=== PATIENT | female | born 1970 | race Caucasian/White ===

== ENCOUNTER 2017-01-20 19:10 | Observation (INO) ==
[2017-01-20 19:54] LABS: MANUAL DIFF NEEDED? NO
[2017-01-20 20:00] LABS: BASO% 0.2 % (0.0-0.8); EOS# 0.27 X1000 (0.0-0.7); EOS% 1.4 % (0.0-10.0); HEMATOCRIT 47.1 % (37.0-47.0); IMM GRAN# 0.06 X1000 (0.0-0.04); IMM GRAN% 0.3 % (0.0-0.5); LYMPH# 5.97 X1000 (1.2-3.4); LYMPH% 30.9 % (20.5-51.1); MCH 30.4 PG (27-31); MCV 89.5 FL (81-99); MONO# 1.48 X1000 (0.11-0.59); MONO% 7.6 % (1.7-9.3); MPV 9.6 FL (7.4-10.4); NEUT% 59.6 % (42.2-75.2); PLT 456 X1000 (130-400); RBC 5.26 XMIL (4.2-5.4)
[2017-01-20 20:04] LABS: BILIRUBIN URINE NEGATIVE (NEGATIVE); BLOOD URINE NEGATIVE (NEGATIVE); CLARITY CLEAR (CLEAR); COLOR YELLOW; LEUKOCYTES URINE 1+ (NEGATIVE); NITRITE URINE NEGATIVE (NEGATIVE); PH URINE 6.5; PROTEIN URINE NEGATIVE (NEGATIVE); UROBILINOGEN URINE NORMAL
[2017-01-20 20:16] LABS: INR 0.95 (0.86-1.15)
[2017-01-20 20:17] LABS: PTT PL 23.2 Seconds (22.6-43.9)
[2017-01-20 20:18] LABS: UR AMPHETAMINES QUAL NONE DETECTED (NONE DETECT); UR BARBITUATES QUAL NONE DETECTED (NONE DETECT); UR BENZODIAZEPIN QUAL PRESUMPTIVE POSITIVE (NONE DETECT); UR COCAINE QUAL NONE DETECTED (NONE DETECT); UR MDMA QUAL NONE DETECTED (NONE DETECT); UR METHADONE QUAL NONE DETECTED (NONE DETECT); UR METHAMPHETAMINE QUAL NONE DETECTED (NONE DETECT); UR OPIATES QUAL NONE DETECTED (NONE DETECT); UR OXYCODONE QUAL NONE DETECTED (NONE DETECT); UR PCP QUAL NONE DETECTED (NONE DETECT)
[2017-01-20 20:19] LABS: UR CANNABINOIDS QUAL NONE DETECTED (NONE DETECT); UR TCA QUAL PRESUMPTIVE POSITIVE (NONE DETECT)
[2017-01-20 20:26] LABS: URINE CAST NONE SEEN /LPF; URINE CRYSTAL NONE SEEN /HPF; URINE CULTURE PL NEEDED? YES; URINE EPITHELIAL CELLS >10 /HPF (<10); URINE SOURCE CATH; URINE WBC <10 /HPF (<10)
[2017-01-20 20:29] LABS: AGAP 27; ALBUMIN 4.3 g/dL (3.5-5.0); ALKALINE PHOSPHATASE 218 U/L (32-104); BUN 12 mg/dL (8-22); CALCIUM 9.9 mg/dL (8.8-10.2); CHLORIDE 94 mmol/L (98-107); CK PROFILE 37 U/L (24-173); COSMO 280; GOT 19 U/L (10-30); GPT 18 U/L (10-36); POTASSIUM 3.2 mmol/L (3.5-5.1); SODIUM 134 mmol/L (136-145); TCO2 13 mmol/L (25-35); TOTAL PROTEIN 7.9 g/dL (6.3-8.3)
[2017-01-20 20:35] LABS: BE -12.5 mmoll (-3.0-3.0); BLOOD TYPE ARTERIAL; DRAW SITE R RADIAL; METHB 0.9 % (0.0-1.5); O2(CT) 20.9 mL/dL (15.0-23.0); PO2(98.6) 157 mmHg (60-100); SAMPLE BLOOD; SAO2 97.8 % (95.0-100.0); THB 15.3 g/dL (11.5-17.4); pH(98.6) 7.37 (7.35-7.45)
[2017-01-20 20:37] LABS: FREE T4 1.86 ng/dL (0.93-1.70)
--- NOTE | 2017-01-20 20:37 | EKG Report ---
Test Performed on : 01/20/2017 8:11:30 PM Test Reason : AMS Blood Pressure : / mmHG Vent. Rate : 144 BPM Atrial Rate : 144 BPM P-R Int : 150 ms QRS Dur : 080 ms QT Int : 260 ms P-R-T Axes : 037 045 208 degrees QTc Int : 402 ms Sinus tachycardia. Possible Left atrial enlargement ST \T\ T wave abnormality, consider inferolateral ischemia Abnormal ECG When compared with ECG of 05-JUL-2016 18:06, Vent. rate has increased BY 63 BPM T wave inversion now evident in Inferior leads T wave inversion now evident in Lateral leads Unconfirmed Result
[2017-01-20 20:38] LABS: ALLEN TEST YES; MODALITY ROOM AIR; PCO2(98.6) 17 mmHg (35-45)
[2017-01-20] MEDS ORDERED: NS 1,000 ML IV ONE (20:47)
[2017-01-20] MEDS ORDERED: HUMULIN R IV ONE (20:48)
[2017-01-20] MEDS ORDERED: ZOFRAN IV ONE (20:59)
[2017-01-20] MEDS ORDERED: HUMULIN R (PARKWAY) 100 UNITS in NS 100 ML IV SCH (21:00)
[2017-01-20] MEDS ORDERED: HUMULIN R (PARKWAY) ONE (21:07)
[2017-01-20] MEDS ORDERED: D50W SYRINGE IV PRN (23:36)
[2017-01-20] MEDS ORDERED: HUMULIN R 100 UNIT in NS 100 ML IV SCH (23:36)
[2017-01-20] MEDS ORDERED: D5 1/2 NS 1,000 ML IV PRN (23:39)
[2017-01-21] MEDS: NS 1,000 ML IV SCH ×4 (00:03→19:53)
[2017-01-21] MEDS: LOPRESSOR PO SCH ×4 (00:03→08:54)
[2017-01-21] MEDS: LUNESTA PO SCH ×2 (00:04→21:08)
[2017-01-21 01:52] LABS: AGAP 20; BUN 10 mg/dL (8-22); CALCIUM 8.5 mg/dL (8.8-10.2); CHLORIDE 98 mmol/L (98-107); COSMO 275; MAGNESIUM 1.2 mg/dL (1.5-2.7); SODIUM 132 mmol/L (136-145); TCO2 14 mmol/L (25-35)
--- NOTE | 2017-01-21 05:39 | PROVIDER DOCUMENTATION ---
This chart was entered by Beth Osorio Scribe, acting as scribe for Mau Belcher MD. HPI-General Adult - General Chief Complaint: General Adult Stated Complaint: DISORIENTED,DIZZINESS Time Seen by Provider: 01/20/17 19:31 Source: patient, family Allergies/Adverse Reactions: Patient Allergies Allergy/AdvReac Type Severity Reaction Status Date / Time Penicillins Allergy Intermediate NAUSEA Verified 06/30/14 09:46 Home Medications: Home Medication List Medication Instructions Recorded Confirmed Last Taken Type Alprazolam [Xanax] 1 mg PO BID PRN PRN 12/01/13 01/21/17 12/01/13 13:00 History Cyanocobalamin 1,000 microgm IM DIRECTED 12/01/13 06/30/14 11/29/13 History Eszopiclone [Lunesta] 3 mg PO HS 12/01/13 01/21/17 10/30/13 History Insulin Aspart [Novolog Flexpen] 20 - 22 unit SQ TID 12/01/13 06/30/14 12/01/13 12:00 History Insulin Detemir [Levemir Flexpen] 44 unit SQ QAM 12/01/13 06/30/14 12/01/13 08: 00 History Metformin [Glucophage] 1,000 mg PO BID CC 12/01/13 01/21/17 12/01/13 08:00 History Promethazine [Phenergan] 25 mg OK Q6H PRN PRN 12/01/13 01/21/17 11/29/13 History Doxepin HCl 300 mg PO HS 01/20/17 01/21/17 Unknown History Eszopiclone [Lunesta] 3 mg PO HS 01/20/17 01/20/17 Unknown History Metoprolol [Lopressor] 1 tab PO DAILY 01/20/17 01/20/17 Unknown History Chlorpromazine [Thorazine] 25 mg PO HS PRN PRN 01/21/17 01/21/17 Unknown History Escitalopram [Lexapro] 40 mg PO DAILY 01/21/17 01/21/17 Unknown History Omeprazole [Prilosec] 20 mg PO DAILY 01/21/17 01/21/17 Unknown History Oxycodone HCl/Acetaminophen 1 mg PO BID PRN PRN 01/21/17 01/21/17 Unknown History [Percocet 5-325 mg Tablet] Tizanidine [Zanaflex] 4 mg PO TID PRN PRN 01/21/17 01/21/17 Unknown History - History of Present Illness -Gen Adult Nature of Presenting Problems: 46 Y/O F presents to ED. Pt states that she has pronounced disorientation, falling down, confusion, confused conversation and explanation. Pt and pt states unable to remember events. Pt has had these symptoms for 6 months with increased symptoms within 48 hours. Pt has noted bruises on body and Pt saw in [place] and stated he told her to come off her meds to see if it would fix symptoms. Pt stated that it did not help. Pt recently returned from [place] on December 15. Pt states recently got restarted on Lunesta , and Xanax, Thorazine. Pt continued on Doxepin, and lexapro while out the country. Location of Pain/Injury: reports: generalized Pain Radiation: reports: no radiation Severity: reports: moderate, severe Onset/Duration: reports: 2 days ago (increased within 48 hours), other (6 months onset) Associated Symptoms: reports: nausea, vomiting, trouble walking, other (AMS). denies: back/neck pain, fever/chills, muscle aches, sinus congestion/drainage Similar Symptoms Previously?: Yes Recently seen or treated by another doctor?: Yes Review of Systems - Adult - REVIEW OF SYSTEMS - ADULT Constitutional: denies: chills, fever Cardiovascular: reports: irregular heart rate. denies: chest pain Respiratory: denies: cough, shortness of breath Gastrointestinal: reports: nausea, vomiting Genitourinary: reports: flank pain Neurological: reports: loss of balance, slurred speech. denies: dizziness/ vertigo, headache/migraines, numbness Psychiatric: reports: insomnia. denies: depression Past History - Adult - PAST MEDICAL HISTORY-ADULT Review of Records: reports: Old Records Reviewed, Nursing Assessment Review, Medications Reviewed, Social history reviewed & non-contributory. Major Childhood Illnesses: reports: denies history Cardiovascular: reports: denies history Respiratory: reports: sleep apnea Gastrointestinal: reports: denies history Obstetrical/Gynecological: reports: denies history Genitourinary: reports: kidney stones Musculoskeletal: reports: fibromyalgia Neurological: reports: denies history Psychiatric: reports: other (seasonal affective disorder) Endocrine/Immune: reports: Diabetes, thyroid disorder Other Conditions: reports: denies history - PRIOR SURGERIES/PROCEDURES Surgical/Procedure History: reports: appendectomy, cholecystectomy, hernia repair - IMMUNIZATION STATUS Childhood Immunizations: See Nurse Assessment Flu Vaccine: See Nurse Assessment - FAMILY HISTORY Family History: reviewed, not pertinent Physical Exam-General - PHYSICAL EXAM-ADULT Initial Vital Signs Reviewed: Yes - CONSTITUTIONAL General Appearance: no apparent distress - EYES Eyes: PERRL/EOMI, pink conjunctivae - HEAD, EARS, NOSE, MOUTH & THROAT HENMT: TMs normal, pharynx normal. negative: moist mucous membranes - NECK Neck: non-tender, full range of motion, supple - RESPIRATORY Respiratory: lungs clear, normal breath sounds - CARDIOVASCULAR Cardiovascular: tachycardia - GASTROINTESTINAL (ABDOMEN) Abdominal Exam: non tender, soft - MUSCULOSKELETAL Back Exam: CVA tenderness Extremity: negative: normal gait, swelling, tenderness - SKIN Integumentary: normal color, normal turgor - PSYCHIATRIC Psych/Mental Status: oriented x 3 Progress - PLAN OF CARE/RESULTS Progress/Plan/Lab Results: Vital Signs - 8 hr 01/20/17 19:22 Temperature 97.7 F Pulse Rate 161 H Respiratory Rate 20 Blood Pressure 135/71 O2 Sat by Pulse Oximetry 99 Laboratory Results - last 24 hr 01/20/17 01/20/17 01/20/17 19:45 19:45 19:45 WBC RBC Hgb Hct MCV MCH MCHC RDW Std Deviation Plt Count MPV Immature Gran % (Auto) Neut % (Auto) Lymph % (Auto) Ponce % (Auto) Eos % (Auto) Baso % (Auto) Immature Gran # (Auto) Neut # (Auto) Lymph # (Auto) Ponce # (Auto) Eos # (Auto) Baso # (Auto) PT INR APTT (Factor Assay) D-Dimer Sodium 134 L Potassium 3.2 L Chloride 94 L Carbon Dioxide 13 L Anion Gap 27 BUN 12 Creatinine 0.8 Estimated GFR/1.73 m2 > 60 BUN/Creatinine Ratio 15 Glucose 307 H POC Glucose Calculated Osmolality 280 Calcium 9.9 Total Bilirubin 0.50 AST 19 ALT 18 Alkaline Phosphatase 218 H Creatine Kinase 37 Troponin T < 0.010 Total Protein 7.9 Albumin 4.3 Globulin 4.0 Albumin/Globulin Ratio 1.0 Plasma Lactate 1.3 Urine Source Urine Color Urine Clarity Urine pH Ur Specific [place] Urine Protein Urine Ketones Urine Blood Urine Nitrite Urine Bilirubin Urine Urobilinogen Urine Microscopic RBC Urine WBC Urine Microscopic WBC Ur Epithelial Cells Urine Crystals Urine Bacteria Urine Casts Urine Yeast Urine Glucose Urine Opiates Screen Ur Oxycodone Screen Urine Methadone Screen Ur Barbituates Screen Ur Tricyclics Screen Ur Phencyclidine Scrn Ur Amphetamines Screen U Methamphetamines Scrn Urine MDMA Screen U Benzodiazepines Scrn Urine Cocaine Screen U Cannabinoids Screen 01/20/17 01/20/17 01/20/17 19:45 19:45 19:45 WBC 19.35 H RBC 5.26 Hgb 16.0 Hct 47.1 H MCV 89.5 MCH 30.4 MCHC 34.0 RDW Std Deviation 13.2 Plt Count 456 H MPV 9.6 Immature Gran % (Auto) 0.3 Neut % (Auto) 59.6 Lymph % (Auto) 30.9 Ponce % (Auto) 7.6 Eos % (Auto) 1.4 Baso % (Auto) 0.2 Immature Gran # (Auto) 0.06 H Neut # (Auto) 11.53 H Lymph # (Auto) 5.97 H Ponce # (Auto) 1.48 H Eos # (Auto) 0.27 Baso # (Auto) 0.04 PT 13.0 INR 0.95 APTT (Factor Assay) 23.2 D-Dimer 1.11 H Sodium Potassium Chloride Carbon Dioxide Anion Gap BUN Creatinine Estimated GFR/1.73 m2 BUN/Creatinine Ratio Glucose POC Glucose Calculated Osmolality Calcium Total Bilirubin AST ALT Alkaline Phosphatase Creatine Kinase Troponin T Total Protein Albumin Globulin Albumin/Globulin Ratio Plasma Lactate Urine Source Urine Color Urine Clarity Urine pH Ur Specific [place] Urine Protein Urine Ketones Urine Blood Urine Nitrite Urine Bilirubin Urine Urobilinogen Urine Microscopic RBC Urine WBC Urine Microscopic WBC Ur Epithelial Cells Urine Crystals Urine Bacteria Urine Casts Urine Yeast Urine Glucose Urine Opiates Screen Ur Oxycodone Screen Urine Methadone Screen Ur Barbituates Screen Ur Tricyclics Screen Ur Phencyclidine Scrn Ur Amphetamines Screen U Methamphetamines Scrn Urine MDMA Screen U Benzodiazepines Scrn Urine Cocaine Screen U Cannabinoids Screen 01/20/17 01/20/17 01/20/17 19:55 19:55 20:02 WBC RBC Hgb Hct MCV MCH MCHC RDW Std Deviation Plt Count MPV Immature Gran % (Auto) Neut % (Auto) Lymph % (Auto) Ponce % (Auto) Eos % (Auto) Baso % (Auto) Immature Gran # (Auto) Neut # (Auto) Lymph # (Auto) Ponce # (Auto) Eos # (Auto) Baso # (Auto) PT INR APTT (Factor Assay) D-Dimer Sodium Potassium Chloride Carbon Dioxide Anion Gap BUN Creatinine Estimated GFR/1.73 m2 BUN/Creatinine Ratio Glucose POC Glucose 293 H Calculated Osmolality Calcium Total Bilirubin AST ALT Alkaline Phosphatase Creatine Kinase Troponin T Total Protein Albumin Globulin Albumin/Globulin Ratio Plasma Lactate Urine Source CATH Urine Color YELLOW Urine Clarity CLEAR Urine pH 6.5 Ur Specific [place] 1.010 Urine Protein NEGATIVE Urine Ketones 3+(Large) A Urine Blood NEGATIVE Urine Nitrite NEGATIVE Urine Bilirubin NEGATIVE Urine Urobilinogen NORMAL Urine Microscopic RBC Not Reportable Urine WBC 1+ A Urine Microscopic WBC <10 Ur Epithelial Cells >10 A Urine Crystals NONE SEEN Urine Bacteria 1+ Urine Casts NONE SEEN Urine Yeast PRESENT Urine Glucose 3+(500 mg/dL) A Urine Opiates Screen NONE DETECTED Ur Oxycodone Screen NONE DETECTED Urine Methadone Screen NONE DETECTED Ur Barbituates Screen NONE DETECTED Ur Tricyclics Screen PRESUMPTIVE POSITIVE A Ur Phencyclidine Scrn NONE DETECTED Ur Amphetamines Screen NONE DETECTED U Methamphetamines Scrn NONE DETECTED Urine MDMA Screen NONE DETECTED U Benzodiazepines Scrn PRESUMPTIVE POSITIVE A Urine Cocaine Screen NONE DETECTED U Cannabinoids Screen NONE DETECTED Orders Category Date Time Status Cardiac Monitoring DIRECTED Care 01/20/17 19:32 Active Finger Stick Blood Sugar (ED) DIRECTED Care 01/20/17 19:32 Active Saline Loc NOW Care 01/20/17 19:32 Active CHEST-2 VIEWS [RAD] Stat Exams 01/20/17 19:35 Taken ABG [RESP] Routine Lab 01/20/17 19:32 Ordered ALCOHOL BLOOD Stat Lab 01/20/17 19:45 Received CBC WITH ELECTRONIC DIFF [HEME] Stat Lab 01/20/17 19:45 Completed CK PROFILE [SP CHEM] Stat Lab 01/20/17 19:45 Completed COMPREHENSIVE METABOLIC PANEL [CHEM] Stat Lab 01/20/17 19:45 Completed Ddimer [D-DIMER PL] [COAG] Stat Lab 01/20/17 19:45 Completed FREE T4 Stat Lab 01/20/17 19:45 Received LACTATE, PLASMA [CHEM] Stat Lab 01/20/17 19:45 Completed MAGNESIUM [CHEM] Stat Lab 01/20/17 19:45 Received [address]IME WITH INR PL [COAG] Stat Lab 01/20/17 19:[address] [COAG] Stat Lab 01/20/17 19:45 Completed TROPONIN T Stat Lab 01/20/17 19:45 Completed TSH Stat Lab 01/20/17 19:[address] W/POSS RFLX CULT [URINALYSIS] Stat Lab 01/20/17 19:55 Completed URINE CULTURE [RM] Routine Lab 01/20/17 20:26 Ordered [address]INE DRUG SCREEN [address] Stat Lab 01/20/17 19:55 Completed Pulse Oximetry Stat Oth 01/20/17 19:32 Active EKG [EKG] Stat Ther 01/20/17 19:32 Ordered Result Diagrams: 01/20/17 19:45 01/21/17 00:55 - EKG 1 Time of EKG reading by physician:: 20:11 EKG Read and Signed by:: Mau Belcher EKG Interpretation (*Must complete 3 of following elements*): Normal Rate: 144 Rhythm: Sinus Tachycardia Comments: Abnormal ECG, St&t Wave abnormality consider inferolateral ischemia - XRAY 1 XRAY Study: Chest Impression: Normal XRAY Interpretation: NAD - CONSULTS/PCP/HOSPITALIST Notification #1 *Consult/PCP/Hospitalist*: Time Discussed: 21:51 Reason/Comments: Admit Consult Disposition: Admit (Admit Accepted) Departure - Departure Time of Disposition Decision: 05:38 DIAGNOSIS: DKA (diabetic ketoacidoses) Qualifiers: Diabetes mellitus type: type 1 Diabetes mellitus complication detail: without coma Qualified Code(s): E10.10 - Type 1 diabetes mellitus with ketoacidosis without coma Disposition: ADMITTED INPATIENT 09 Certified Medical Emergency: Emergent Condition: Fair - Critical Care Note This patient required my direct & personal management of CC.: Yes This chart was documented by the indicated scribe, (Beth Osorio Scribe) and accurately reflects the services I performed and decisions made by me, Mau Belcher MD, as attested by the provider's signature.
--- NOTE | 2017-01-21 05:57 | Diag Imaging Result Doc PS360 ---
EXAM: CHEST-2 VIEWS HISTORY: ams TECHNIQUE: Two views COMPARISON: 07/05/2016 FINDINGS: The lungs are well expanded. The heart is not enlarged. The vessels are not distended. There are no infiltrates. No pleural effusions. IMPRESSION: No acute abnormality. Electronically signed by Jadiel Saha 01/21/2017 5:54 AM
[2017-01-21 07:18] LABS: AGAP 16; BUN 11 mg/dL (8-22); CALCIUM 8.6 mg/dL (8.8-10.2); CHLORIDE 105 mmol/L (98-107); COSMO 281; MAGNESIUM 1.3 mg/dL (1.5-2.7); POTASSIUM 3.1 mmol/L (3.5-5.1); SODIUM 137 mmol/L (136-145); TCO2 16 mmol/L (25-35)
[2017-01-21] MEDS ORDERED: MAGNESIUM SULFATE 2 GM/S.W.I. 2 GM/50 ML IVPB IV ONE (08:27)
[2017-01-21] MEDS ORDERED: THORAZINE PO PRN (08:30)
[2017-01-21] MEDS ORDERED: ZANAFLEX PO PRN (08:30)
[2017-01-21] MEDS: LEXAPRO PO SCH (08:52)
[2017-01-21 08:53] LABS: AGAP 14; BUN 9 mg/dL (8-22); CALCIUM 8.6 mg/dL (8.8-10.2); CHLORIDE 106 mmol/L (98-107); COSMO 277; MAGNESIUM 1.3 mg/dL (1.5-2.7); SODIUM 136 mmol/L (136-145); TCO2 17 mmol/L (25-35)
[2017-01-21] MEDS: PRILOSEC PO SCH (09:00)
--- NOTE | 2017-01-21 09:29 | HISTORY AND PHYSICAL ---
PRIMARY CARE PHYSICIAN: [facility]. CHIEF COMPLAINT: Disorientation, confusion, and falling down that has been present for 6 months but worse over the past 48 hours. HISTORY OF PRESENTING ILLNESS: This is a 46-year-old, female who presents to [facility] ER with her who stated that she has had increased disorientation, confusion, had some falling down episodes, unable to remember events, and that these symptoms have been present for 6 months but worse over the past 48 hours with increase in all of those symptoms. She has noted bruises on her body. States she recently returned from [place] where she was visiting family from September until November, and was off of some of her medications at that time but states that she has been taking her diabetes medications. Workup in the ER showed a white blood cell count of 19.35, a D-dimer of 1.11. Blood gases showed a pH of 7.37, a pCO2 of 17, a PO2 157, bicarb 15.1. Sodium was 134, with a potassium of 3.2, CO2 was 13, with an anion gap of 27, glucose was 307. Magnesium was 1.4. She was admitted to the intensive care unit for DKA and further evaluation and treatment. PAST MEDICAL HISTORY: Sleep apnea, fibromyalgia, diabetes type 2, hypothyroidism, neuropathy, PTSD, and kidney stones. PAST SURGICAL HISTORY: Appendectomy, cholecystectomy, and a hernia repair. FAMILY HISTORY: Diabetes type 2. SOCIAL HISTORY: She currently lives with family. Denies any tobacco, alcohol, or illicit drug use. ALLERGIES: Penicillin. HOME MEDICATIONS: She takes Xanax 1 mg p.o. b.i.d. p.r.n., Thorazine 25 mg p.o. at bedtime p.r.n., cyanocobalamin 1000 mcg IM as directed will be held, doxepin 300 mg p.o. at bedtime, Lexapro 40 mg p.o. daily, Lunesta 3 mg p.o. at bedtime, NovoLog FlexPen - dosage has not been verified on that so we will get verification of that and her Levemir, Glucophage 1000 mg p.o. b.i.d. will be held, Lopressor 50 mg p.o. daily, Prilosec 20 mg p.o. daily, Percocet 5 one p.o. b.i.d. p.r.n., Phenergan 25 mg per rectally q.6 hours p.r.n. will be held, and Zanaflex 4 mg p.o. t.i.d. p.r.n. LABORATORY DATA: Showed a white blood cell count of 19.35, a hemoglobin of 16, hematocrit 47.1, platelets 456,000. PT and INR of 13 and 0.95. A D-dimer of 1.11. A pH of 7.37 , pCO2 17, PO2 157, bicarb of 15.1, and this was on room air. Sodium of 134, potassium 3.2, chloride 94, CO2 13, BUN of 12, creatinine 0.8, anion gap of 27, glucose 307. Magnesium 1.4. TSH is 0.95 with a free T4 of 1.86. Urinalysis was negative except for 3+ ketones and 3+ glucose. Urine drug screen was presumptive positive for tricyclics and benzodiazepines. Serum alcohol level showed none detected. Urine culture is pending. Chest x-ray showed no acute abnormality. REVIEW OF SYSTEMS: She denied any fever, chills, blurred vision. She has had some dizziness, increased confusion. Denied any chest pain, coughing, shortness of breath. She was positive for some nausea and vomiting, increased confusion, falls. Denied any burning or hurting with urination. PHYSICAL EXAMINATION: VITAL SIGNS: On arrival, she had a temperature of 97.7 degrees, pulse 161, respirations 20, blood pressure 135/71, saturating 99% on room air. GENERAL: This is a 46-year-old, female who is lying in the bed and answers questions appropriately. HEENT: Normocephalic and atraumatic. Pupils are equal, round, and reactive to light. The extraocular movements are intact. The oropharynx and nares are clear. NECK: Supple. LUNGS: Clear to auscultation bilaterally with equal lung expansion and chest wall movement. HEART: She was tachycardic when she 1st came in but now her pulse is down to 108. No murmurs, rubs, or gallops. ABDOMEN: Soft, nontender, nondistended. Bowel sounds are present x4 quadrants. EXTREMITIES: No clubbing, cyanosis, or edema. NEUROLOGICAL: The cranial nerves 2-12 are grossly intact. ASSESSMENT: 1. Diabetic ketoacidosis. 2. Hypokalemia. 3. Hypomagnesemia. 4. Elevated D-dimer. 5. Tachycardia. 6. Leukocytosis that is likely reactive. PLAN: She was admitted to the intensive care unit at [place]. Placed on telemetry, diabetic diet. Placed on the DKA protocol with labs per the DKA protocol. Continue her home medications. She was given Lopressor 25 mg p.o. q.6 hours. We will supplement her potassium with 20 mEq IV x2 bags and magnesium sulfate 2 g IV x1. We will check a pulmonary arteriogram and bilateral lower extremity venous Doppler as she has had a recent flight history with her elevated D-dimer. We will rule out any clots at this time. Dictated by MELANIA Nagel for Wilner Pal MD cc: MELANIA Nagel MD Marlin D. Gill, MD pt examined, agree with above, very poor compliance with insulin, refuses take levemir, has been trying to control diabetes with novolog alone, and has been on vacation in [place] with very little regard for her diet , discussed that she may need endocrinology [facility]
[2017-01-21] MEDS: POTASSIUM CHLORIDE 20 MEQ/SWI 20 MEQ/100 ML IVPB IV SCH ×2 (10:22→13:38)
[2017-01-21 12:15] LABS: HEMOGLOBIN A1C 11.3 % (4.8-6.0)
[2017-01-21 12:18] LABS: AGAP 13; BUN 7 mg/dL (8-22); CALCIUM 8.4 mg/dL (8.8-10.2); CHLORIDE 107 mmol/L (98-107); COSMO 277; MAGNESIUM 1.8 mg/dL (1.5-2.7); POTASSIUM 3.4 mmol/L (3.5-5.1); SODIUM 136 mmol/L (136-145); TCO2 17 mmol/L (25-35)
[2017-01-21] MEDS ORDERED: HUMALOG DOSE (PARKWAY) SUBQ SCH (13:00)
--- NOTE | 2017-01-21 13:49 | Diag Imaging Result Doc PS360 ---
EXAM: ANGIOGRAM/PULMONARY ARTERIES HISTORY: elevated ddimer TECHNIQUE: COMPARISON: 07/05/2016 FINDINGS: Trace pleural fluid. The heart is mildly enlarged. No thoracic aortic aneurysm or dissection. No enlarged mediastinal lymph nodes. Mild esophageal wall thickening. No consolidation. No bronchiectasis. Normal opacification of the pulmonary arteries and their proximal main branches. IMPRESSION: 1.No pulmonary emboli 2.Cardiomegaly 3.Mild esophageal thickening may indicate esophagitis or reflux 4.Trace pleural fluid Electronically signed by Jadiel Saha 01/21/2017 1:47 PM
[2017-01-21] MEDS ORDERED: SODIUM PHOSPHATE 40 MEQ in NS 250 ML IV ONE (16:00)
[2017-01-21 16:43] LABS: AGAP 15; BUN 5 mg/dL (8-22); CALCIUM 8.3 mg/dL (8.8-10.2); CHLORIDE 107 mmol/L (98-107); COSMO 278; MAGNESIUM 1.6 mg/dL (1.5-2.7); POTASSIUM 3.5 mmol/L (3.5-5.1); SODIUM 139 mmol/L (136-145); TCO2 17 mmol/L (25-35)
[2017-01-21] MEDS: PERCOCET-5 PO PRN (16:47)
[2017-01-21 20:21] LABS: AGAP 15; BUN 6 mg/dL (8-22); CALCIUM 7.8 mg/dL (8.8-10.2); CHLORIDE 107 mmol/L (98-107); COSMO 281; MAGNESIUM 1.6 mg/dL (1.5-2.7); POTASSIUM 3.1 mmol/L (3.5-5.1); SODIUM 139 mmol/L (136-145); TCO2 17 mmol/L (25-35)
[2017-01-21] MEDS ORDERED: LUNESTA PO SCH (21:00)
[2017-01-21] MEDS ORDERED: SINEQUAN PO SCH (21:00)
[2017-01-21] MEDS: XANAX PO PRN (21:07)
[2017-01-22] MEDS: NS 1,000 ML IV SCH ×2 (01:00→09:20)
[2017-01-22 01:53] LABS: AGAP 12; BUN 5 mg/dL (8-22); CALCIUM 8.1 mg/dL (8.8-10.2); CHLORIDE 112 mmol/L (98-107); COSMO 288; MAGNESIUM 1.6 mg/dL (1.5-2.7); SODIUM 144 mmol/L (136-145); TCO2 20 mmol/L (25-35)
[2017-01-22 05:03] LABS: HEMATOCRIT 37.9 % (37.0-47.0); MCH 31.3 PG (27-31); MCHC 34.3 g/dL (33-37); MCV 91.1 FL (81-99); MPV 9.2 FL (7.4-10.4); RBC 4.16 XMIL (4.2-5.4)
[2017-01-22 05:12] LABS: AGAP 12; BUN 5 mg/dL (8-22); CALCIUM 8.4 mg/dL (8.8-10.2); CHLORIDE 109 mmol/L (98-107); COSMO 281; MAGNESIUM 1.6 mg/dL (1.5-2.7); POTASSIUM 2.7 mmol/L (3.5-5.1); SODIUM 141 mmol/L (136-145); TCO2 20 mmol/L (25-35)
[2017-01-22] MEDS ORDERED: LEVEMIR SUBQ ONE (05:50)
[2017-01-22] MEDS: PERCOCET-5 PO PRN (06:12)
[2017-01-22] MEDS: PRILOSEC PO SCH (06:12)
[2017-01-22] MEDS: HUMALOG (PARKWAY) SUBQ SCH ×2 (08:17→12:08)
[2017-01-22] MEDS: LOPRESSOR PO SCH (08:17)
[2017-01-22] MEDS: LEXAPRO PO SCH (08:17)
[2017-01-22] MEDS ORDERED: KLOR-CON PO ONE (12:23)
[2017-01-22] MEDS: XANAX PO PRN (13:13)
[2017-01-22] MEDS ORDERED: DOXYCYCLINE PO SCH (13:30)
[2017-01-22 14:31] VITALS: BP 101/74
--- NOTE | 2017-01-22 15:20 | DISCHARGE SUMMARY ---
ADMISSION DATE: 01/20/2017 DISCHARGE DATE: 01/22/2017 ADMITTING DIAGNOSES: 1. Diabetic ketoacidosis due to poor compliance. 2. Uncontrolled diabetes. 3. Urinary tract infection with gram-positive organism not otherwise specified. DISCHARGE DIAGNOSES: 1. Diabetic ketoacidosis due to poor compliance. 2. Uncontrolled diabetes 3. Urinary tract infection with gram-positive organism not otherwise specified. HOSPITAL COURSE: Briefly this is a 46-year-old female, who is a very interesting character. I think she was born in [place], is an immigrant but she has recently been in [place] on vacation and I do not think she has been very compliant with her diet. She was told by physicians there that she does need to take her Levemir anymore. I am not sure how true that is but that is what she reports by 2 different physicians. Her sugars she says usually runs 250 in the morning. That is "normal" for her. Anyway, she came in with affective DKA. Blood sugar initially was 307 but her bicarbonate was 13 and her INR gap was 27. Her pH was okay. Ketones were not drawn but on her urine they were large on a UA. In any case, patient clinically stabilized on insulin drip. This was instituted and she was switched to Levemir in the morning, which is her usual. She usually takes 44-45 units daily, which I do not think she has been taking that the last several weeks maybe even longer. We discussed compliance and the need for long-acting insulin, take regular meals, watch her carbohydrate intake, recommended a dietary consult as an outpatient and likely follow up with an personal banking representative in [place] to better manage her diabetes. Again a lot of this is probably related to compliance. Discharge Medications will be Levemir in addition to NovoLog. Initial white count was [address]1974. Repeat was 7 the next day. Urine was really unremarkable except for a little bit of white blood cells. She had some yeast but her urine culture is growing out PPC, gram-positive cocci so we started her on doxycycline/she is allergic to penicillin and she will be discharged on that. DISCHARGE MEDICATIONS: Xanax 1 b.i.d. p.r.n., for is seen 25 p.r.n., doxepin 300 at bedtime, doxycycline 100 p.o. b.i.d. for 7 days. Lexapro 40 daily, Lunesta 3 at bedtime, NovoLog FlexPen 20-25 units t.i.d. Levemir, I am just going to start at 40 units daily. Glucophage 1 g b.i.d., I am not really sure she should continue that, kidney function is okay. I guess continue that. I am not sure how compliant she is with that. Lopressor 50 daily. I am going to give her Toprol-XL 50 daily, Prilosec 20 daily. Percocet p.r.n., Phenergan p.r.n., Zanaflex p.r.n. DISCHARGE INSTRUCTIONS: He is to follow up with her PCP in 1-2 weeks and then Endocrinology in [place]. We will give her the number for Dr. Madrigal and follow. TIME SPENT AT DISCHARGE: A 32 minute discharge. cc: Wilner Pal MD
--- NOTE | 2017-01-24 08:11 | Extremity Venous Study ---
EXAM: Venous U/S Bilateral Legs HISTORY: elevated d-dimer TECHNIQUE: Mckeon scale, duplex, and color Doppler evaluation was performed of the lower extremities bilaterally. COMPARISON: None. FINDINGS: The deep veins of the lower extremities demonstrate appropriate compressibility and augmentation. No intraluminal thrombus is visualized. There is no evidence for DVT. The superficial veins appear patent. IMPRESSION: No evidence for DVT bilateral lower extremities. Electronically signed by Obdulia May 01/24/2017 8:08 AM
== END 2017-01-22 14:15 | disposition home or self-care (01) ==
LOC: P.ED 19:10 → P.ICU 22:00 → INTOOBSV 22:00
PROVIDERS: ATTEND Internal Medicine